=== PATIENT | female | born 1995 | race Native Hawaiian/Other Pacific Islander ===

== ENCOUNTER 2017-05-11 10:40 | Emergency (ER) | payer OTHER ==
[2017-05-11 10:47] VITALS: BP 113/73; PULSE 77; RESP 18; TEMP 98.5; O2SAT 100
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
[2017-05-11 12:15] LABS: RBC URINE 17 /hpf (0-3); URINE BACTERIA FEW (<OCC); URINE BILIRUBIN NEGATIVE (NEGATIVE); URINE BLOOD 3+ (NEGATIVE); URINE COLOR Yellow (YELLOW); URINE GLUCOSE (UA) NORMAL (Normal); URINE KETONE TRACE mg/dL (NEGATIVE); URINE LEUKOCYTE ESTERASE 2+ Leu/uL (Negative); URINE PROTEIN NEGATIVE (NEGATIVE); URINE UROBILINOGEN NORMAL mg/dL (0.2-1.0); WBC URINE 19 /hpf (0-5)
[2017-05-11] MEDS ORDERED: cefTRIAXone (Rocephin) 250 mg Inj IM STA (13:54)
== END 2017-05-11 14:17 | disposition home or self-care (01) ==
LOC: C.ER 10:40
DX: Z04.41 Encounter for examination and observation following alleged adult rape (principal); N39.0 Urinary tract infection, site not specified
CPT/HCPCS: 80324; 80345; 80346; 80349; 80353; 80358; 80361; 81001; 83992; 84703; 96372; 99284; J0696

== ENCOUNTER 2017-05-12 16:08 | Emergency (ER) | payer OTHER ==
[2017-05-12 16:20] VITALS: TEMP 98.2
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
[2017-05-12 17:06] VITALS: BP 116/71; PULSE 72; RESP 18
[2017-05-12 18:50] VITALS: O2SAT 100
== END 2017-05-12 17:06 | disposition home or self-care (01) ==
LOC: C.ER 16:08
DX: L50.9 Urticaria, unspecified (principal)